=== PATIENT | female | born 1965 | race Caucasian/White ===

== ENCOUNTER → 2024-07-17 | Day surgery (SDC) | payer OTHER ==
[~2024-07-17] MED LIST: ACETAMINOPHEN/CODEINE 300MG - 30MG TAB ONE; CYCLOBENZAPRINE10 MG PO; LOSARTAN POTASS25 MG PO; METOPROLOL SUCC25 MG PO; MOBIC PO; MOUNJARO15 MG/0.5 SQ; OMEPRAZOLE40 MG PO; TRAZODONE HCL100 MG PO
[2024-07-17] MEDS: LACTATED RINGER'S 1,000 ML ONE (06:02)
[2024-07-17 08:20] VITALS: TEMP 98
[2024-07-17] MEDS: FENTANYL CITRATE/PF 100MCG/2 ML INJ ONE (08:36)
[2024-07-17] MEDS: ACETAMINOPHEN/CODEINE 300MG - 30MG TAB PO ONE (09:30)
[2024-07-17 09:35] VITALS: BP 161/84; PULSE 62; RESP 16; O2SAT 99
== END | disposition home or self-care (01) ==
LOC: OR 06:07
PROVIDERS: ATTEND Specialist
DX: G56.03 Carpal tunnel syndrome, bilateral upper limbs (principal); M19.90 Unspecified osteoarthritis, unspecified site; G89.29 Other chronic pain; I10 Essential (primary) hypertension; K21.9 Gastro-esophageal reflux disease without esophagitis; Z01.810 Encounter for preprocedural cardiovascular examination; Z79.85 Long-term (current) use of injectable non-insulin antidiabetic drugs; Z79.899 Other long term (current) drug therapy; M54.12 Radiculopathy, cervical region
CPT/HCPCS: 29848; 93005; J0690; J3010; J7121